=== PATIENT | female | born 1995 | race Two or more races ===

== ENCOUNTER 2021-06-20 03:29 | Outpatient (CLI) | payer MEDICAID, SELFPAY ==
[2021-06-20 14:10] LABS: TSH (W/Ref FT4) 1.49 uIU/mL (0.36-3.74)
[2021-06-20 22:29] LABS: Prolactin 8.6 ng/mL (See Table)
[2021-06-21 16:11] LABS: Chlamydia Result Negative (Negative); GC Result Negative (Negative)
[2021-06-22 09:46] LABS: DHEA Sulfate 199 ug/dL (134-407)
[2021-06-22 21:18] LABS: 17-Hydroxyprogesterone 69 ng/dL
[2021-06-23 13:35] LABS: Testosterone, Free 1.02 ng/dL (0.06-1.08); Testosterone, Total 51 ng/dL (8-60)
== END 2021-06-20 03:30 | disposition home or self-care (01) ==
LOC: LBO 03:29
PROVIDERS: Visit Provider Nurse Practitioner Family
DX: N92.6 Irregular menstruation, unspecified (principal); Z11.3 Encounter for screening for infections with a predominantly sexual mode of transmission
CPT/HCPCS: 36415; 82627; 84402; 84403; 87491; 87591; 83498; 84146; 84443

== ENCOUNTER 2021-06-20 13:23 | Outpatient (CLI) | payer MEDICAID, SELFPAY ==
--- NOTE | 2021-06-20 10:45 | DI.US_ITS ---
Exam(s) US PELVIS TRANSVAGINAL EXAM: US PELVIS TRANSVAGINAL CLINICAL HISTORY: Heavy and irregular periods,n92.6 TECHNIQUE: Ultrasound of the pelvis was performed both transabdominal and transvaginal. COMPARISON: No exams were available for comparison FINDINGS: UTERUS: Nongravid anteverted Measures 9.7 cm length x 3.4 cm AP x 5.6 cm wide. There are no uterine fibroids. Endometrial thickness measures 10.9 mm. There is no fluid in the endometrial canal. CERVIX: There are no obvious nabothian cysts. RIGHT OVARY: Measures 3.4 x 2.4 x 2.6 cm There is a 3.2 x 1.9 x 2.6 cm cyst in the right ovary LEFT OVARY: Measures 3 x 2.8 x 2.2 cm No significant cysts nor masses evident in the left ovary. CUL-DE-SAC: No free fluid evident. IMPRESSION: 1. Normal appearing uterus and age-appropriate endometrium. 2. A cyst in the right ovary measuring 32 x 19 x 26 millimeters. 3. No free fluid evident in the adnexal regions and cul-de-sac. DATA REPOSITORY:
== END 2021-06-20 13:43 ==
PROVIDERS: Visit Provider Nurse Practitioner Family
DX: N92.6 Irregular menstruation, unspecified (principal); N83.291 Other ovarian cyst, right side
CPT/HCPCS: 76830; 76856

== ENCOUNTER 2021-06-20 13:33 | Outpatient (REF) | payer MEDICAID, SELFPAY ==
--- NOTE | 2021-06-20 10:30 | PAPFT_PTH ---
PATIENT: Gina Pérez LOC: [facility] U#:[id number] AGE/SX: 25/F ROOM: RE06/20/[address]: LIZBETH Collier : 1995 BED: DIS: 06/20/2021 SPEC #: [id number] RECD: 06/20/21 18:33 STATUS: PETTY REBritt #: [id number] GARY: 06/20/21 10:[address]: Nelsy Montiel DEPT: [facility] Cytology RECD BY: Rebecca Link Tissues: 1 - CX/ENDOCX FOR PAP SMEARS Procedures: PAP THIN PREP/[facility] Screening Comments: [id number]
== END 2021-06-20 13:34 | disposition home or self-care (01) ==
LOC: LBN 13:33
PROVIDERS: Visit Provider Nurse Practitioner Family
DX: Z12.4 Encounter for screening for malignant neoplasm of cervix (principal)
CPT/HCPCS: 88142

== ENCOUNTER 2021-10-05 13:53 | Emergency (ER) | payer MEDICAID, SELFPAY ==
[2021-10-05 14:09] VITALS: BP 141/69; PULSE 65; RESP 16; TEMP 36.7; O2SAT 99
--- NOTE | 2021-10-05 15:52 | ED.GENADUL_ITS ---
Discharge Plan Disposition Patient Disposition: HOME Condition: Stable Discharge Details Clinical Impression: Lumbar contusion Primary Care Provider: None,None ED Provider: Rebecca Morales Home Meds and New Rx's Prescriptions: New cyclobenzaprine 10 mg tablet 10 mg PO TID PRNQty: 10 0RF Continued metformin 500 mg tablet 500 mg PO BID Qty: 180 3RF albuterol sulfate 90 mcg/actuation HFA aerosol inhaler 2 puff inhalation Q6H PRN (Reason: shortness of breath or wheezing) Qty: 8.5 0RF Rx Instructions: take 2 puffs every 6 hours as needed for cough, wheeze, or SOB Discharge Instructions Instructions: Contusion in Adults (ED) Additional Instructions: take tylenol and you may use flexeril as needed for discomfort with persistent pain, recommend xray or futher evaluation of your back please return earlier with strenght or sensation changes, change in bowel, bladder, or with any new or worsening symptoms Stand Alone Forms: Work Release Discharge Data Discharge Date/Time-TO BE ENTERED AT DEPARTURE: 10/05/21 16:20 Medical Decision Making Patient appears well, they are currently attempting to become and patient is unsure if she is currently She had a normal. 21 days ago and do start her period tomorrow I discussed performing test and x-ray however patient's pain is predominantly over her coccyx and management change with a positive coccyx fracture So patient feels comfortable with following up with PCP should she need it, she will take Tylenol and Flexeril as needed for discomfort She has no additional visible evidence of trauma and she has a nonfocal neurological exam Given low threshold to return with new or worsening complaints Medical Records Medical records reviewed: Yes I reviewed the patient's medical records. HPI General Date/Time Provider Initiated Documentation: 10/05/21 14:16 . HPI Narrative: This 26-year-old female presented with fall. She fell approximately 2 weeks ago and landed on her tailbone. She denies any additional injuries including no head injury. States that she is presenting mostly because the pain is been persistent and not dramatically improving. She states in the coccyx region questionable. She denies any changes in bowel or bladder. She denies any fever or chills. She denies any urinary incontinence or retention. She Denies known . Her last menstrual period was 21 days ago. Denies dysuria or frequency. Related Data Home Medications Medication Instructions Recorded Confirmed albuterol sulfate 90 mcg/actuation 2 puff INHALATION Q6H PRN #8.5 g 05/31/21 08/02/21 aerosol inhaler metformin 500 mg tablet 500 mg PO BID #180 tab 06/27/21 08/02/21 cyclobenzaprine 10 mg tablet 10 mg PO TID PRN #10 tab 10/05/21 Previous Rx's Medication Instructions Recorded albuterol sulfate 90 mcg/actuation 2 puff INHALATION Q6H PRN #8.5 g 05/31/21 aerosol inhaler metformin 500 mg tablet 500 mg PO BID #180 tab 06/27/21 cyclobenzaprine 10 mg tablet 10 mg PO TID PRN #10 tab 10/05/21 Allergies Allergy/AdvReac Type Severity Reaction Status Date / Time No Known Allergies Allergy Verified 05/31/21 12:17 General Stated Complaint: Orthopedic DEREK: 4 Review of Systems All systems reviewed & are unremarkable except as noted in HPI and below PFSH All Active Problems (Updated 10/05/21 @ 15:55 by ERWIN Ibrahim) Lumbar contusion (Acute) PCOS (polycystic ovarian syndrome) (Acute) Irregular menstruation, unspecified (Acute) Medical History Hypothyroid Family History Father Well adult Mother Well adult Social History Smoking/Tobacco Use Status: Never Smoking risk assessment performed?: Yes Alcohol Intake: never History History 1 Para Hx # Term Pregnancies 1 Multiple births Hx # Pregnancies Ectopic pregnancies AB induced Hx Number of Living Children 1 AB spontaneous Exam Const General: cooperative and no acute distress HENMT Head: normal to inspection Eyes Pupils: PERRL Resp Effort & Inspection: normal respiratory effort Auscultation: clear to auscultation bilaterally Cardio Rate: regular rate Rhythm: regular rhythm GI Other: No abdominal tenderness or visible trauma tenderness, no CVA tenderness No abdominal bruit or pulsatile mass Back/Spine/Pelvis Other: Tenderness to palpation over coccyx, no lumbar spine tenderness, no thoracic spine no visible evidence of trauma Skin General skin exam: no rashes or lesions noted Neuro General: patient alert and patient oriented x3 Cranial Nerves: CN's II-XI intact bilaterally Other: Strength and sensation distally Extrem Other: Distal pulses intact Course Vital Signs Vital signs: Vital Signs Temperature 36.7 C 10/05/21 14:09 Pulse 65 10/05/21 14:09 Respiratory Rate 16 10/05/21 14:09 Blood Pressure 141/69 H 10/05/21 14:09 Pulse Oximetry 99 10/05/21 14:09 Temperature 36.7 C 10/05/21 14:09 Temperature Source Skin 10/05/21 14:09 Pulse 65 10/05/21 14:09 Respiratory Rate 16 10/05/21 14:09 Respiratory Effort 10/05/21 14:13 Blood Pressure 141/69 H 10/05/21 14:09 Blood Pressure Position Sitting 10/05/21 14:09 Pulse Oximetry 99 10/05/21 14:09 Oxygen Delivery Method Room Air 10/05/21 14:09 Oxygen Flow Rate 0 10/05/21 14:09 Pain Level 7 10/05/21 15:02
== END 2021-10-05 16:20 | disposition home or self-care (01) ==
PROVIDERS: Emergency Provider Physician Assistant
DX: S30.0XXA Contusion of lower back and pelvis, initial encounter (principal); W00.0XXA Fall on same level due to ice and snow, initial encounter
CPT/HCPCS: 99283

== ENCOUNTER 2021-11-10 13:13 | Outpatient (CLI) | payer MEDICAID, SELFPAY ==
[2021-11-10 13:40] LABS: HCG Quant, Pregnancy < 1 mIU/mL (1-3)
== END 2021-11-10 13:14 | disposition home or self-care (01) ==
LOC: LBO 13:16
PROVIDERS: Obstetrics & Gynecology; Visit Provider Advanced Practice Midwife
DX: N91.0 Primary amenorrhea (principal)
CPT/HCPCS: 36415; 84702

== ENCOUNTER 2021-11-11 02:43 | Outpatient (CLI) | payer MEDICAID, SELFPAY | END 2021-11-11 02:44 | disposition home or self-care (01) | PROVIDERS: Visit Provider Obstetrics & Gynecology ==

== ENCOUNTER 2022-07-20 12:49 | Emergency (ER) | payer MEDICAID, SELFPAY ==
[2022-07-20 12:51] VITALS: BP 117/77; PULSE 92; RESP 16; TEMP 36.7; O2SAT 98
--- NOTE | 2022-07-20 14:34 | ED.GENADUL_ITS ---
Discharge Plan Disposition Patient Disposition: Home Condition: Stable Discharge Details Clinical Impression: Influenza Primary Care Provider: None,None ED Provider: Andrew Jackson Home Meds and New Rx's Prescriptions: Continued albuterol sulfate 90 mcg/actuation HFA aerosol inhaler 2 puff inhalation Q6H PRN (Reason: shortness of breath or wheezing) Qty: 8.5 0RF Rx Instructions: take 2 puffs every 6 hours as needed for cough, wheeze, or SOB Discharge Instructions Instructions: Influenza (ED) Additional Instructions: [id number] medications as directed for symptomatic control. Please watch for new or worsening symptoms and return to the ER for any concerns. Rest, plenty of fluids to avoid dehydration. Stand Alone Forms: Work Release Discharge Data Discharge Date/Time-TO BE ENTERED AT DEPARTURE: 07/20/22 14:42 Medical Decision Making 26-year-old female presents concerned that she has the flu, positive sick contact in her household diagnosed with flu earlier this week. Clinically she appears well, nontoxic. Afebrile, lungs are clear to auscultation. O2 sat 98% on room air. She is taking wcmy-ago-awxwviv medication with some relief. We discussed Tamiflu, she is otherwise healthy, symptoms are mild, would prefer to avoid any medications that she does not necessarily need. I believe this to be reasonable. She does not want to be tested for the flu, given her positive sick contact and symptoms, I believe this to be reasonable. We will presumptively assume this is the flu, will provide work note for tomorrow. Standard discharge and return precautions were provided. Patient understands, is agreeable to this plan, and has no additional questions or concerns upon discharge. This documentation was generated using [email or web address] system, please disregard any oddities of phrase or misspellings. Medical Records Medical records reviewed: Yes I reviewed the patient's medical records. HPI General Mode of arrival: ambulatory . Date/Time Provider Initiated Documentation: 07/20/22 14:10 . Limitations to Documentation: no limitations . Information obtained by: patient . HPI Narrative: 26-year-old female, denies significant past medical history, presents to the ER reporting URI-like symptoms for the past 24-48 hours. A family member who lives in the household tested positive for flu on Sunday. Patient has been DayQuil and NyQuil with some relief of her symptoms. Denies fever. Believes that she has the flu does not believe testing for the flu is necessary. Would like a work note for tomorrow. Related Data Home Medications Medication Instructions Recorded Confirmed albuterol sulfate 90 mcg/actuation 2 puff inhalation Q6H PRN 05/31/21 07/20/22 aerosol inhaler shortness of breath or wheezing #8.5 grams Previous Rx's Medication Instructions Recorded albuterol sulfate 90 mcg/actuation 2 puff inhalation Q6H PRN 05/31/21 aerosol inhaler shortness of breath or wheezing #8.5 grams Allergies Allergy/AdvReac Type Severity Reaction Status Date / Time No Known Allergies Allergy Verified 07/20/22 12:58 General Stated Complaint: RespSymp DEREK: 4 Review of Systems Constitutional Constitutional: Reports fatigue, Denies fever(s) and Reports headache(s) ENT Ears, Nose, Mouth, and Throat: Reports headache(s) and Reports nasal congestion Cardiovascular Cardiovascular: Denies chest pain and Denies dyspnea Respiratory Respiratory: Reports cough and Denies dyspnea Gastrointestinal Gastrointestinal: Denies abdominal pain, Denies diarrhea, Denies nausea and Denies vomiting Musculoskeletal Musculoskeletal: Reports myalgias Integumentary/Breasts Skin/Breast: Denies rash Neurologic Neurologic: Reports headache(s) Endocrine Endocrine: Reports fatigue PFSH All Active Problems Influenza (Acute) Anxiety (Chronic) Patient desires (Acute) Delayed menses (Acute) PCOS (polycystic ovarian syndrome) (Acute) Irregular menstruation, unspecified (Acute) Medical History Hypothyroid Miscarriage Family History Father Well adult Mother Well adult Social History Smoking/Tobacco Use Status: Never Smoking risk assessment performed?: Yes Alcohol Intake: never Drug use: Current Sobriety Substance use type: marijuana Do you feel safe at home: Yes Do you feel safe in your relationship?: Yes History History 3 Para Hx # Term Pregnancies 1 Multiple births Hx # Pregnancies Ectopic pregnancies AB induced Hx Number of Living Children 1 AB spontaneous 2 Past Pregnancies Del. Date GA/Weeks # Preg Succ Route Wgt Sex Labor Lgth Anesth esia Location Prov Complic 10/10/18 40 No Yes vaginal Female [place] Exam Const General: cooperative, healthy appearing, comfortable and no acute distress Orientation: alert and awake HENMT Head: normal to inspection, normocephalic and atraumatic Ears: external ears normal, TM's normal bilaterally and EAC's normal General nose exam: nasal discharge clear Mouth: moist mucous membranes Throat: posterior oropharynx normal Eyes Conjunctivae: conjunctivae normal Neck Neck: normal visual inspection, full ROM, no meningeal signs, trachea midline and supple Resp Effort & Inspection: normal respiratory effort, able to speak in complete sentences and cough Quality of cough: dry Auscultation: clear to auscultation bilaterally Cardio Rate: regular rate Rhythm: regular rhythm Skin General skin exam: no rashes or lesions noted Neuro General: patient alert, patient awake, moves all extremities and no focal motor deficits Sensory Exam: no sensory deficits noted Psych Appearance: grossly normal Mental Status: mental status grossly normal Course Vital Signs Vital signs: Vital Signs Temperature 36.7 C 07/20/22 12:51 Pulse 92 H 07/20/22 12:51 Respiratory Rate 16 07/20/22 12:51 Blood Pressure 117/77 07/20/22 12:51 Pulse Oximetry 98 07/20/22 12:51 Temperature 36.7 C 07/20/22 12:51 Temperature Source Skin 07/20/22 12:51 Pulse 92 H 07/20/22 12:51 Respiratory Rate 16 07/20/22 12:51 Respiratory Effort Non-Labored 07/20/22 14:17 Respiratory Depth Normal 07/20/22 14:17 Blood Pressure 117/77 07/20/22 12:51 Blood Pressure Position Standing 07/20/22 12:51 Pulse Oximetry 98 07/20/22 12:51 Oxygen Delivery Method Room Air 07/20/22 12:51 Oxygen Flow Rate 0 07/20/22 12:51 Pain Level 0 07/20/22 12:51
== END 2022-07-20 14:42 | disposition home or self-care (01) ==
PROVIDERS: Emergency Provider Physician Assistant
DX: J10.1 Influenza due to other identified influenza virus with other respiratory manifestations (principal)
CPT/HCPCS: 99282

== ENCOUNTER 2023-05-23 16:11 | Outpatient (REF) | payer OTHER, SELFPAY ==
[2023-05-23 16:58] LABS: *AMPHETAMINES SCREEN URINE Negative (Negative); *BARBITURATES SCREEN URINE Negative (Negative); *BENZODIAZEPINES SCREEN URINE Negative (Negative); Cannabinoids THC Negative (Negative); Cocaine Screen,Urine Negative (Negative); METHADONE URINE SCREEN Negative (Negative); OPIATES URINE SCREEN Negative (Negative)
[2023-05-23 17:00] LABS: Tricyclic Antidepressants Negative (Negative)
[2023-05-25 13:05] LABS: Chlamydia Result Negative (Negative); GC Result Negative (Negative)
[2023-05-30 10:49] LABS: Buprenorphine Negative ng/mL (Cutoff: 5.0); Norbuprenorphine Negative ng/mL (Cutoff: 2.5)
== END 2023-05-23 16:12 | disposition home or self-care (01) ==
LOC: LBN 16:11
PROVIDERS: Visit Provider Advanced Practice Midwife
DX: Z34.91 Encounter for supervision of normal pregnancy, unspecified, first trimester (principal)
CPT/HCPCS: 80307; 80348; 87491; 87591; 87086; 87480; 87510; 87660

== ENCOUNTER 2023-06-29 00:58 | Outpatient (CLI) | payer OTHER, SELFPAY ==
[2023-06-29 12:35] LABS: Abs Immature Grans 0.02 10^3/uL (0.0-0.06); Absolute Basophil Count 0.03 10^3/uL (0.0-0.2); Absolute Eosinophil Count 0.14 10^3/uL (0.0-0.7); Absolute Lymphocyte Count 2.18 10^3/uL (1.2-3.4); Absolute Monocyte Count 0.38 10^3/uL (0.1-0.8); Absolute Neutrophil Count 5.78 10^3/uL (1.2-6.7); Basophils % 0.4; Eosinophils % 1.6; HGB 11.9 g/dL (11.2-15.7); Immature Grans % 0.2; Lymphocytes % 25.6; MCH 27.9 pg (27.0-33.0); MCHC 33.1 % (32.0-36.0); MCV 84 fL (80-95); Monocytes % 4.5; Neutrophils % 67.7; Platelet Count 278 10^3/uL (130-400); RBC 4.27 10^6/uL (3.93-5.22); RDW 13.7 % (11.7-14.6); RDW-SD 42.4 fL; WBC 8.53 10^3/uL (4.4-10.8)
[2023-06-29 12:50] LABS: Hemoglobin A1C 5.3 % (<5.7)
[2023-06-29 12:59] LABS: TSH (W/Ref FT4) 1.03 uIU/mL (0.36-3.74)
[2023-07-02 10:34] LABS: Hepatitis B Surface Ag Negative (Negative)
[2023-07-02 11:00] LABS: Hepatitis C Ab w Rflx HCV PCR Negative (Negative)
[2023-07-02 11:06] LABS: HIV-1/2 Ag & Ab Screen Negative (Negative)
[2023-07-02 11:34] LABS: Varicella IgG Antibody Negative (See Note)
[2023-07-02 11:36] LABS: Rubella IgG Ab (UVM) Negative (See Note)
[2023-07-03 22:02] LABS: Syphilis IgG w/Reflex Nonreactive (Nonreactive)
== END 2023-06-29 00:59 | disposition home or self-care (01) ==
PROVIDERS: Visit Provider Advanced Practice Midwife
DX: Z34.91 Encounter for supervision of normal pregnancy, unspecified, first trimester; E28.2 Polycystic ovarian syndrome
CPT/HCPCS: 36415; 86787; 86803; 86850; 86900; 86901; 87340; 87389; 83036; 84443; 85025; 86762; 86780

== ENCOUNTER → 2023-07-11 02:09 | Outpatient (CLI) | payer OTHER, SELFPAY ==
--- NOTE | 2023-07-11 08:00 | DI.US_ITS ---
Exam(s) US OB 2-3 TRIMESTER W MOD EXAM: US OB 2-3 TRIMESTER W MOD CLINICAL HISTORY: ,z34.90. TECHNIQUE: Transabdominal obstetrical ultrasound performed. COMPARISON: US POCUS EXAM from 04/25/2023 FINDINGS: Number of fetuses: One. position: Breech, face up Placental grade: 1 Placental location: Anterior no evidence of previa. BIOMETRIC DATA: BPD: 46mm = 20+ 0 weeks HC: 168mm = 19+ 3 weeks AC: 148mm = 20+ 0 weeks FL: 33mm = 20+ 1 weeks Cisterna Magna: Not visualized mm Cerebellum: Not visualized cm EFW: 327 grms 64% Composite Age: 19+ 6 weeks EDC by US: 29 November 2023 Heart Rate: !ErrorBPM Amniotic fluid : Amount of fluid is within normal limits. ANATOMICAL SURVEY: Four-chambered heart: Unremarkable. LVOT: Unremarkable. RVOT: Unremarkable. Left-sided stomach: Unremarkable. urinary bladder: Unremarkable. Bilateral kidneys: Unremarkable. Three-vessel cord: Unremarkable. Cord insertion: Unremarkable. Posterior fossa:Not visualized ventricles: Unremarkable. nose: Unremarkable. lips: Unremarkable. palate: Unremarkable. spine: Unremarkable. Two arms and two legs: Unremarkable. IMPRESSION: 1. Single live intrauterine gestation with composite age 19+ 6 weeks.. 2. Normal anatomic survey. Posterior fossa not visualized. Patient is scheduled to return 20 July 2023 for additional imaging. DATA REPOSITORY:
== END ==
PROVIDERS: Visit Provider Advanced Practice Midwife
DX: Z34.93 Encounter for supervision of normal pregnancy, unspecified, third trimester (principal)
CPT/HCPCS: 76805

== ENCOUNTER 2023-08-25 13:09 | Outpatient (CLI) | payer OTHER, SELFPAY ==
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
[2023-08-25 13:48] VITALS: BP 109/76; PULSE 82
--- NOTE | 2023-08-25 13:55 | W.OBNST ---
Date of service: 08/25/23 Time of Service: 13:55 Note Ultrasound Done: Presentation (vtx) Coding for Presentation w/NST: Completed Exam and Other (placenta with no abnormalities. Good movement. ). NST Note Note: Did POCUS due to pt having an episode of bleeding Around 26wks. See the CNM note for complete details. No concerns on sono. Pt discussed and plan made in conjuction with CNM. NST Reviewed and Verified by: Minerva Ornelas
--- NOTE | 2023-08-25 14:17 | W.OBNST ---
Date of service: 08/25/23 Time of Service: 13:10 NST Evaluation Reason for NST Reasons for Nonstress Test: OTHER, SEE COMMENT (vaginal bleeding 26w1d) Test and Monitor Explained Test/Monitor Explained: Test Explained, Monitor Explained and Patient Verbalized Understanding Vital Signs Blood Pressure: 109/76 Pulse: 82 NST Information Date on Monitor: 08/25/23 Time on Monitor: 13:04 Date off Monitor: 08/25/23 Time off Monitor: 13:48 Total Time on Monitor: 44 Contraction Frequency: none Note Ultrasound Done: N/A (see separate note by Dr. Ornelas). NST Note Note: assessment done due to complaint of bright red vaginal bleeding without pain X 1 today. Enough to soak toilet paper but not clothing. Denies contractions or pain. Baby has been active. FHR 150's WNL for 26 week gestation. No uterine activity noted. SSE done, cervix long, thick and closed. [place] discharge in vagina in small amount, none from OS noted. Couple had intercourse less than 48 hours ago. Vaginal pathogen and GC CT obtained as well as clean catch urine. Dr. Ornelas consulted and feels discharge to home to rest is appropriate at this time and Gina will call back with any further concerns. Pelvic rest at this time recommended for the weekend.POCUS done by Dr. Ornelas confirms VTX, adequate amniotic fluid visually. SADE NST Reviewed and Verified by: Tova Guadalupe
[2023-08-25 14:22] VITALS: BP 109/76; PULSE 82
== END 2023-08-25 14:05 | disposition home or self-care (01) ==
LOC: BCD 13:09 → OBS 13:10
PROVIDERS: Visit Provider Advanced Practice Midwife
DX: O26.852 Spotting complicating pregnancy, second trimester (principal); Z3A.26 26 weeks gestation of pregnancy
CPT/HCPCS: 87491; 87591; 59025; 87086; 87480; 87510; 87660

== ENCOUNTER 2023-09-07 02:45 | Outpatient (CLI) | payer OTHER, SELFPAY ==
[2023-09-07 11:25] LABS: HCT 34.9 % (36.0-46.0); HGB 11.3 g/dL (11.2-15.7); MCHC 32.4 % (32.0-36.0); MCV 87 fL (80-95); Platelet Count 297 10^3/uL (130-400); RBC 4.03 10^6/uL (3.93-5.22); RDW 13.6 % (11.7-14.6); RDW-SD 42.9 fL; WBC 9.74 10^3/uL (4.4-10.8)
[2023-09-07 11:50] LABS: Glucose,1 Hr (Glucola) 103 mg/dL (80-140)
== END 2023-09-07 02:46 | disposition home or self-care (01) ==
LOC: LBO 02:45
PROVIDERS: Visit Provider Advanced Practice Midwife
DX: Z34.93 Encounter for supervision of normal pregnancy, unspecified, third trimester (principal)
CPT/HCPCS: 36415; 82950; 85027

== ENCOUNTER 2023-10-15 00:43 | Outpatient (CLI) | payer OTHER, SELFPAY ==
[2023-10-15 01:31] VITALS: BP 110/65; PULSE 60; TEMP 36.7
[2023-10-15 01:35] VITALS: BP 142/75; PULSE 56
[2023-10-15] MEDS: Lactated Ringers 1,000 ML 1000 ML IV (01:45)
--- NOTE | 2023-10-15 02:06 | W.PM.PROGNOT ---
Date of Service Date of service: 10/15/23 Time of Service: 02:06 Assessment and Plan Assessment and plan (1) Uterine contractions at greater than 20 weeks of gestation: Status: Acute Assessment and plan: A: 28 yo @ 33+3 wks; reactive NST, no labor Discomforts of , dehydration Maternal anxiety, obesity P: Rehydrated with 1 liter LR IV PO intake challenge, Tylenol for back pain POCUS confirms cephalic presentation Discharged home feeling better, f/up as scheduled with OB Providers Subjective Subjective Interval history since last seen: Woke up with a hard tummy that hurt in the lower abdomen and back pain at 2300, pt crying on the phone when she called, vomited x1. Denies ROM or bleeding or recent coitus. Exam Const General: cooperative and anxious Nutritional Appearance: obese Orientation: alert, awake and oriented x3 Chest Chest: normal inspection of the chest Resp Effort & Inspection: normal respiratory effort and able to speak in complete sentences Cardio Rate: regular rate Rhythm: regular rhythm External Female Exam: normal external appearance Other: cvx closed, thick and firm, posterior, presenting part -3 Skin General skin exam: no rashes or lesions noted and elasticity normal Neuro Other: Nml patellar reflexes Extrem General: normal to inspection, full ROM and normal gait Psych Mood: anxious mood (on arrival, relaxed once she knew the baby was ok and she was not in PTL) Attitude: cooperative Thought Process: normal Thought Content: normal Objective BP 110/65, Pulse 60, temp 98.1 Reactive NST, active fetus Time Spent with Patient Time Spent with Patient: 25-34 minutes Time was spent: preparing to see the patient(eg.review tests), obtaining and/or reviewing separately otained hiistory, ordering medications,tests, procedures, indepentently interpreting results and counseling the patient
[2023-10-15] MEDS: Acetaminophen 500 MG TAB 1000 MG PO (02:12)
[2023-10-15 02:15] VITALS: BP 110/65; PULSE 60; TEMP 36.7
--- NOTE | 2023-10-15 02:21 | W.OBNST ---
Date of service: 10/15/23 Time of Service: 02:21 NST Evaluation Reason for NST Reasons for Nonstress Test: OTHER, SEE COMMENT Reason for NST Other: Rule out labor Gestational Age Gestational Age in Weeks and Days: 33 Weeks and 3Days Test and Monitor Explained Test/Monitor Explained: Test Explained, Monitor Explained and Patient Verbalized Understanding Vital Signs Blood Pressure: 110/65 Pulse: 60 Temperature: 98.1 F Urine Results Urine Protein: Positive Urine Ketones: Negative Urine Glucose: Negative Urine Blood: Negative NST Information Date on Monitor: 10/15/23 Time on Monitor: 01:30 Date off Monitor: 10/15/23 Time off Monitor: 01:50 Total Time on Monitor: 20 NST Interventions: PO Hydration and IV Fluids NST Evaluation Patient States Movement: Present FHR Baseline: 145 Variability: Moderate 6-25 bpm Accelerations: 15x15 Decelerations: None NST Results: Reactive Note Ultrasound Done: Presentation Presentation Results: cephalic presentation Coding for Presentation w/NST: Completed Exam. NST Note Note: No labor, cvx closed/thick, firm, posterior Uterine irritability resolved with 1 liter LR IV bolus Given tylenol for back pain Discharged to home, f/up as scheduled pt requested work note NST Reviewed and Verified by: Audrey Earl
[2023-10-15 02:23] VITALS: BP 110/65; PULSE 60; TEMP 36.7
== END 2023-10-15 02:57 | disposition home or self-care (01) ==
LOC: BCD 00:47 → OBS 01:25
PROVIDERS: PCP Advanced Practice Midwife; Visit Provider Advanced Practice Midwife
DX: O47.03 False labor before 37 completed weeks of gestation, third trimester (principal); Z3A.33 33 weeks gestation of pregnancy
CPT/HCPCS: 59025; 81003

== ENCOUNTER → 2023-10-22 04:47 | Outpatient (CLI) | payer OTHER, SELFPAY ==
--- NOTE | 2023-10-22 08:30 | DI.US_ITS ---
Exam(s) US OB CAM WEIGHT EXAM: US OB CAM WEIGHT CLINICAL HISTORY: interval growth, position,high bmi,z34.90. TECHNIQUE: Transabdominal obstetrical ultrasound performed. COMPARISON: US US OB 2-3 TRIMESTER W MOD from 07/11/2023 US US OB F/U FACIAL/LVOT/RVOT from 07/20/2023 US POCUS EXAM from 08/25/2023 US POCUS EXAM from 10/15/2023 FINDINGS:: Number of fetuses: One. position: Vertex. Placental location: Anterior. Grade 1. no evidence of previa. BIOMETRIC DATA: BPD: 87mm = 35+2 weeks HC: 316mm = 35+3 weeks AC: 320mm = 35+ 6 weeks FL: 69 mm = 35+3 weeks EFW: 2729 Gms = 80% Composite Age: 35+4 weeks JOHN: 22 November 2023 Heart Rate: 135BPM Amniotic fluid index: 14 cm. Amount of fluid is visually within normal limits. IMPRESSION: size and weight are within the expected range. DATA REPOSITORY:
== END ==
PROVIDERS: PCP Advanced Practice Midwife; Visit Provider Advanced Practice Midwife
DX: Z34.93 Encounter for supervision of normal pregnancy, unspecified, third trimester (principal); Z3A.35 35 weeks gestation of pregnancy
CPT/HCPCS: 76816

== ENCOUNTER 2023-11-05 16:23 | Outpatient (REF) | payer OTHER, SELFPAY | END 2023-11-05 16:24 | disposition home or self-care (01) | LOC: LBN 16:23 | PROVIDERS: PCP Advanced Practice Midwife; Visit Provider Advanced Practice Midwife | DX: Z34.93 Encounter for supervision of normal pregnancy, unspecified, third trimester (principal); Z36.85 Encounter for antenatal screening for Streptococcus B; Z3A.36 36 weeks gestation of pregnancy | CPT/HCPCS: 87081 ==

== ENCOUNTER 2023-11-26 01:19 | Inpatient (IN) | payer OTHER, SELFPAY ==
[2023-11-26] VITALS (14 sets, daily range): BP systolic 116–142; BP diastolic 69–87; PULSE 65–117; RESP 18; TEMP 36.6–37.4; O2SAT 98; BMI 45.1
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
[2023-11-26] MEDS: Lactated Ringers 1,000 ML 125 ML IV (01:45)
[2023-11-26] MEDS: Penicillin G POT. 5,000,000 UNITS in Normal Saline 100 ML 200 UNITS IVPB (01:46)
[2023-11-26 01:58] LABS: HCT 40.3 % (36.0-46.0); HGB 13.2 g/dL (11.2-15.7); MCH 27.3 pg (27.0-33.0); MCHC 32.8 % (32.0-36.0); MCV 83 fL (80-95); MPV 11.4 fL (8.0-11.0); Platelet Count 215 10^3/uL (130-400); RBC 4.83 10^6/uL (3.93-5.22); RDW 13.8 % (11.7-14.6); RDW-SD 42.2 fL; WBC 9.48 10^3/uL (4.4-10.8)
[2023-11-26 02:22] LABS: Hemoglobin A1C 5.8 % (<5.7)
[2023-11-26] MEDS: Acetaminophen 500 MG TAB 1000 MG PO (03:23)
--- NOTE | 2023-11-26 05:16 | PGE_ITS ---
Date of service: 11/26/23 Time of Service: 05:16 Pelvic Exam Dilation: 8 Effacement (%): 100 station: -2 Position: ROP Contractions Monitor Mode: Palpation Contraction Frequency(min): q3-5 Intensity: Moderate/Strong Fetus A Monitor: Doppler Heart Rate Baseline: 140 FHR Rhythm: Regular Characteristics: Normal Decelerations: None Amniotic Membrane Status: Intact Assessment and Plan Assessment and plan (1) Normal labor: Status: Acute Assessment and plan: A: Coping well with labor while in tub ROP head position, approaching transition First dose of PCN infused P: Pt agreeable to leaving tub briefly after 2nd dose PCN Will consider AROM, some position changes Anticipate (2) Group B Streptococcus carrier, +RV culture, currently : Status: Acute Objective Abnormal lab results 11/26/23 Range/Units 01:43 MPV 11.4 H (8.0-11.0) fL Hemoglobin A1c 5.8 H (<5.7) % Temp Pulse BP 99.3 F 82 132/69 11/26/23 05:05 11/26/23 05:05 11/26/23 05:05 Laboratory Results WBC 9.48 10^3/uL (4.4-10.8) 11/26/23 01:43 RBC 4.83 10^6/uL (3.93-5.22) 11/26/23 01:43 Hgb 13.2 g/dL (11.2-15.7) 11/26/23 01:43 Hct 40.3 % (36.0-46.0) 11/26/23 01:43 MCV 83 fL (80-95) 11/26/23 01:43 MCH 27.3 pg (27.0-33.0) 11/26/23 01:43 MCHC 32.8 % (32.0-36.0) 11/26/23 01:43 RDW 13.8 % (11.7-14.6) 11/26/23 01:43 Plt Count 215 10^3/uL (130-400) 11/26/23 01:43 MPV 11.4 fL (8.0-11.0) H 11/26/23 01:43 Hemoglobin A1c 5.8 % (<5.7) H 11/26/23 01:43 Patient ABO/Rh B Positive 11/26/23 01:43 Antibody Screen NEGATIVE 11/26/23 01:43 Vital Signs Reviewed: Yes Objective Narrative Objective Narrative: Pt relaxing well in the tub She requested SVE at 0300, found to be 8cm with descent to -2, softly bulging forebag Hgb A1C @ 5.8; hgb 13.2 Intermittent FHT per doppler reassuring Subjective Interval history since last seen: Enjoying being in the tub, was able to sleep for an hour, now reports mild r ectal pressure during some contractions and states she has lower back pain which has been happening since yesterday,, has a headache for which she requested tylenol, tolerating PO fluid intake.
[2023-11-26] MEDS: Penicillin G POT. 3,000,000 UNITS in Normal Saline 50 ML 100 UNITS IVPB (05:38)
--- NOTE | 2023-11-26 06:33 | PGE_ITS ---
Date of service: 11/26/23 Time of Service: 06:33 Informed Consent Informed Consent: Risk,Benefits,Alternatives Discussed and Other (AROM) Pelvic Exam Dilation: 8 Effacement (%): 100 station: -2 Position: LOP Cervix Position: mid Consistency: soft Contractions Monitor Mode: External Contraction Frequency(min): q2-4 Contraction Duration(sec): 60 Intensity: Moderate Fetus A Monitor: External (US) Heart Rate Baseline: 150 Variability: Moderate (6-25 BPM) Categories: Category I Accelerations: Present Decelerations: None Amniotic Membrane Status: Ruptured Rupture Method: Artifical Amniotic Fluid: M econium Date of Membrane Rupture: 11/26/23 Time of Membrane Rupture: 06:27 Assessment and Plan Assessment and plan (1) Normal labor: Status: Acute Assessment and plan: A: Slowed progress in multipara; @ 8 cm AROM accomplished for large amt meconium tinged fluid Category 1 tracing; normotensive & afebrile P: Positioning to facilitate rotation and descent May return to tub when begins progressing again Anticipate (2) Group B Streptococcus carrier, +RV culture, currently : Status: Acute Assessment and plan: Has received 2 doses of PCN prophylaxis Subjective Interval history since last seen: Contractions have decreased in frequency and strength, able to void 400 ml, resting LLP in bed, agrees to AROM.
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
[2023-11-26] MEDS: Oxytocin/Normal Saline 30 UNIT/500 ML BAG 334 UNITS IV (09:25)
--- NOTE | 2023-11-26 09:35 | OBVDS_ITS ---
Date of service: 11/26/23 Time of Service: 09:36 OB Labor/ Delivery Information Baby A Delivery Delivery Method: Spontaneaous Presentation: Cephalic Vertex Position: Right Occipital Anterior Cord Description-Baby A: 3 Vessels and Clamped/Cut (after 3 minutes of delayed cord clamping) Amniotic Fluid: Meconium (thin) Estimated Blood Loss: 350 Delivery Outcome: Liveborn Transferred: Remains with Mother Note: Gina presented in early active labor early hours of 11/26/23 and progressed to 8.5/90/-1 at approximately 0830. She requested epidural despite encouragement that her baby would deliver soon. VAMP PRESSER attended but then patient had urge to push. FHR WNL throughout labor. VE at 0905 10/100/+3. Second stage huddle held and after 2 contractions, baby girl Alfreda delivered SHANIQUA over intact perineum at 0907. Baby was placed skin to skin. After 3 minutes cord ceased pulsations and was double clamped and then cut by FOB. Placenta delivered via reyes mechanism with gentle cord traction and maternal pushing effort at 0923. Fundus firms to U with massage and bi-manual exam demonstrates firm lower uterine segment and no clots. EBL 350cc. Perineum is intact. Gina plans to breast feed her daughter. Plan 36-48 hour stay due to meconium fluid and GBS + status. Did receive 2 doses prior to delivery of PCN. Expect normal PP course. Providers Nurse Biophysics Professor: Tova Guadalupe Nurse: Marilou Hooks Labor/Delivery Information Number of Babies in Womb: 1 Steroids Given: None Reason Steroids Not Administered: N/A Group Beta Strep: Positive Antibiotics Administered: Yes Number of Doses of Antibiotics: 2 Rubella Status: Nonimmune Blood Type: B+ Varicella Immunity: Nonimmune Shoulder Dystocia: No Stages of Labor Onset of Labor Date: 11/25/23 Onset of Labor Time: 08:00 Complete Dilatation Date: 11/26/23 Complete Dilatation Time: 09:05 Labor - Stage 1 Duration: 25 hours and 5 minutes ROM Baby A: 11/26/23 ROM Baby A: 06:27 ROM Total Time- Baby A: [id number] Delivery Date-Baby A: 11/26/23 Infant Delivery Time-Baby A: 09:07 Labor Stage 2 Duration: 2 minutes Placenta Delivery Date-Baby A: 04/22/24 Placenta Delivery Time-Baby A: 09:23 Labor-Stage 3 Duration: 16 minutes Total Length of Labor-Baby A: 25 hours and 7 minutes Placenta Status: Delivered Baby A Infant Gender: Female Gestational Status: Term (39-41.6 wks) Gestational Age in Weeks/Days: 39 Weeks and 3 Days Score-1 Minute Interval(Baby A) Heart Rate-1 minute: 100 BPM or Greater Respiratory Effort- 1 minute: Spontaneous/Strong Cry Muscle Tone-1 minute: Active Movement Reflex Response-1 minute: Prompt Response Color-1 minute: Bluish Hands or Feet Total Score-1 minute: 9 Score-5 Minute Interval(Baby A) Heart Rate- 5 minute: 100 BPM or Greater Respiratory Effort-5 minute: Spontaneous/Strong Cry Muscle Tone-5 minute: Active Movement Reflex Response-5 minute: Prompt Response Color-5 minute: Bluish Hands or Feet Total Score- 5 minute: 9
[2023-11-26] MEDS: Acetaminophen 325 MG TAB 650 MG PO ×2 (10:42→22:04)
[2023-11-26] MEDS: Ibuprofen 600 MG TAB PO (10:43)
[2023-11-26] MEDS: Hamamelis Leaf/Glycerin 100 EACH BOX PR (10:44)
[2023-11-26] MEDS: Dibucaine 1% 28 GM TUBE TP (10:44)
[2023-11-27] VITALS: BP 106/63; PULSE 78; RESP 18; TEMP 36.6
--- NOTE | 2023-11-27 00:03 | NUR.NOTE ---
Nursing Note,Pt reports baby is nursing frequently for long periods of time, WNL. Pt reports some nipple soreness when asked. Nipple cream given with verbal instructions and pt verbalizes understanding. Reviewed importance of a good latch especially towards end of feedings if baby is relaxing suck.
[2023-11-27 08:45] VITALS: BP 124/77; PULSE 74; RESP 17; TEMP 36.7
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
== END 2023-11-27 12:45 | disposition home or self-care (01) | DRG 807 ==
LOC: BCD 01:29 → OBS 01:29
PROVIDERS: Admitting Provider Advanced Practice Midwife; PCP Advanced Practice Midwife; Visit Provider Advanced Practice Midwife
DX: O99.824 Streptococcus B carrier state complicating childbirth (principal); Z37.0 Single live birth; Z3A.39 39 weeks gestation of pregnancy; O99.284 Endocrine, nutritional and metabolic diseases complicating childbirth; E28.2 Polycystic ovarian syndrome; O77.0 Labor and delivery complicated by meconium in amniotic fluid; O99.214 Obesity complicating childbirth; E66.01 Morbid (severe) obesity due to excess calories; O99.344 Other mental disorders complicating childbirth; F41.9 Anxiety disorder, unspecified; O99.62 Diseases of the digestive system complicating childbirth; R12 Heartburn; O75.89 Other specified complications of labor and delivery; M54.31 Sciatica, right side
CPT/HCPCS: 85027; 86850; 86900; 86901; 59025; 83036; J2540

== ENCOUNTER 2024-01-08 15:59 | Outpatient (REF) | payer OTHER, SELFPAY ==
--- NOTE | 2024-01-08 16:00 | PAPFT_PTH ---
PATIENT: Gina Pérez LOC: TRAM U#:[id number] AGE/SX: 28/F ROOM: RE01/08/[address]: Tova Guadalupe CNM : 1995 BED: DIS: 01/08/2024 SPEC #: [id number] RECD: 01/08/24 17:52 STATUS: PETTY REQ #: [id number] GARY: 01/08/24 16:[address]: Tova Guadalupe [facility] Cytology RECD BY: Rebecca Link ENTERED: 01/08/24 17:53 SP TYPE: PAPFT OTHR DR: Audrey Earl CNM Tissues: 1 - CX/ENDOCX FOR PAP SMEARS Procedures: PAP THIN PREP/UVM Screening Comments: [id number]
== END 2024-01-08 16:00 | disposition home or self-care (01) ==
LOC: LBN 15:59
PROVIDERS: PCP Advanced Practice Midwife; Visit Provider Advanced Practice Midwife
DX: Z12.4 Encounter for screening for malignant neoplasm of cervix (principal)
CPT/HCPCS: 88142

== ENCOUNTER 2024-05-11 21:16 | Emergency (ER) | payer MEDICAID, SELFPAY ==
[2024-05-11 21:17] VITALS: BP 147/89; PULSE 90; RESP 16; TEMP 36.6; O2SAT 98
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
[2024-05-11] MEDS: Lidocaine/Prilocaine Cream 5 GM TUBE TP (22:11)
[2024-05-11] MEDS: Nystatin POWDER 15 GM JAR TP (22:11)
[2024-05-11] MEDS: Lidocaine/Prilocaine Cream 5 GM TUBE (22:36)
[2024-05-11 22:37] VITALS: RESP 20; O2SAT 98
== END 2024-05-11 22:42 | disposition home or self-care (01) ==
LOC: ER 22:43
PROVIDERS: Emergency Provider Nurse Practitioner Family; PCP Advanced Practice Midwife
DX: R21 Rash and other nonspecific skin eruption (principal); L98.8 Other specified disorders of the skin and subcutaneous tissue
CPT/HCPCS: 99283

== ENCOUNTER 2024-06-10 13:56 | Outpatient (CLI) | payer MEDICAID, SELFPAY ==
[2024-06-10] MEDS: Omnipaque 350 MG/ML 100 ML BTL IJ (14:54)
[2024-06-10] MEDS: Normal Saline - Diluent 50 ML VIAL IJ (14:55)
--- NOTE | 2024-06-10 15:10 | DI.CT_ITS ---
Exam(s) CT HEAD WO/W EXAM: CT HEAD WO/W CLINICAL HISTORY: swelling left scalp, painful ? etiology R22.0 MASS. TECHNIQUE: Imaging Protocol: Axial computed tomography images with coronal and sagittal reformatted images were created and reviewed. CONTRAST MATERIAL: Intravenous: Omnipaque 350 contrast volume:100 mL COMPARISON: No exams were available for comparison FINDINGS: Ventricles and Extra axial spaces: Normal in size and morphology for the patient's age. Hemorrhage: None. Cerebral parenchyma: Normal. Enhancement: No suspicious enhancement. [place]: Unremarkable. Midline shift: None. Brainstem/Cerebellum: Normal. Calvarium: Normal. Visualized Paranasal sinuses/Mastoids: Clear. Soft tissues: There is a 0.7 cm round nodule in the soft tissues posterior to the left ear (series 4, image 47). There is also mild infiltration of the soft tissues. No focal fluid collection is seen to suggest an abscess. This may represent an lymph node. IMPRESSION: 1. No acute intracranial process. 2. Infiltration of the soft tissues posterior to the left ear with a 0.7 cm round nodule in the subcu taneous tissues. This may correspond to the palpable abnormality and may represent a reactive lymph n ode. The underlying bone is unremarkable. Please correlate with patient's physical exam. RADIATION DOSE DELIVERED: 1,786.62mGy.cm Total DLP 1,786.62mGy.cm Total DLP DATA REPOSITORY: All CT scans at this facility are submitted to the National Radiology Data Registry (NRDR) Dose Index Registry (DIR) with the [employer] ([employer]). RADIATION OPTIMIZATION: All CT scans at this facility use at least one of these dose optimization te chniques: automated exposure control; mA and/or kV adjustment per patient size (includes targeted exa ms where dose is matched to clinical indication); or iterative reconstruction.
== END 2024-06-10 14:16 ==
LOC: DI 13:57
PROVIDERS: PCP Advanced Practice Midwife; Visit Provider Physician Assistant
DX: R22.0 Localized swelling, mass and lump, head (principal)
CPT/HCPCS: 70470; J3490

== ENCOUNTER 2024-06-10 15:47 | Outpatient (CLI) | payer MEDICAID, SELFPAY ==
[2024-06-10 14:36] LABS: Abs Immature Grans 0.01 10^3/uL (0.0-0.06); Absolute Basophil Count 0.04 10^3/uL (0.0-0.2); Absolute Eosinophil Count 0.16 10^3/uL (0.0-0.7); Absolute Lymphocyte Count 2.29 10^3/uL (1.2-3.4); Absolute Monocyte Count 0.54 10^3/uL (0.1-0.8); Absolute Neutrophil Count 5.24 10^3/uL (1.2-6.7); Basophils % 0.5 %; Eosinophils % 1.9 %; HGB 12.9 g/dL (11.2-15.7); Immature Grans % 0.1 %; Lymphocytes % 27.7 %; MCH 26.7 pg (27.0-33.0); MCHC 31.5 % (32.0-36.0); MCV 85 fL (80-95); MPV 9.6 fL (8.0-11.0); Monocytes % 6.5 %; Neutrophils % 63.3 %; Platelet Count 301 10^3/uL (130-400); RBC 4.83 10^6/uL (3.93-5.22); RDW 15.4 % (11.7-14.6); RDW-SD 47.6 fL; WBC 8.28 10^3/uL (4.4-10.8)
[2024-06-10 15:01] LABS: ALT 65 U/L (14-59); AST 20 U/L (15-37); Albumin 3.1 g/dL (3.4-5.0); Alkaline Phosphatase 120 U/L (46-116); Anion Gap 7.2 mmol/L (3-11); BUN 11 mg/dL (7-18); Bilirubin, Total 0.33 mg/dL (0.2-1.0); CO2 29.8 mmol/L (21.0-32.0); CREATININE 0.7 mg/dL (0.55-1.02); Calcium 9.2 mg/dL (8.5-10.1); Chloride 109 mmol/L (98-107); Estimated GFR 121.49 (mL/min/1.73m2); Glucose 110 mg/dL (74-106); Potassium 3.7 mmol/L (3.5-5.1); Sodium 146 mmol/L (136-145); TSH (W/Ref FT4) 1.21 uIU/mL (0.36-3.74); Total Protein 7.3 g/dL (6.4-8.2)
== END 2024-06-10 15:48 | disposition home or self-care (01) ==
LOC: LBO 15:48
PROVIDERS: PCP Advanced Practice Midwife; Visit Provider Physician Assistant
DX: R22.0 Localized swelling, mass and lump, head (principal); R20.2 Paresthesia of skin
CPT/HCPCS: 36415; 80053; 84443; 85025

== ENCOUNTER 2024-12-30 10:47 | Outpatient (CLI) | payer MEDICAID, SELFPAY ==
[2024-12-30 16:11] LABS: Abs Immature Grans 0.01 10^3/uL (0.0-0.06); Absolute Basophil Count 0.04 10^3/uL (0.0-0.2); Absolute Eosinophil Count 0.11 10^3/uL (0.0-0.7); Absolute Lymphocyte Count 2.98 10^3/uL (1.2-3.4); Absolute Monocyte Count 0.54 10^3/uL (0.1-0.8); Absolute Neutrophil Count 5.64 10^3/uL (1.2-6.7); Basophils % 0.4 %; Eosinophils % 1.2 %; HCT 43.3 % (36.0-46.0); HGB 13.8 g/dL (11.2-15.7); Immature Grans % 0.1 %; MCH 27.7 pg (27.0-33.0); MCHC 31.9 % (32.0-36.0); MCV 87 fL (80-95); Monocytes % 5.8 %; Neutrophils % 60.5 %; Platelet Count 313 10^3/uL (130-400); RBC 4.99 10^6/uL (3.93-5.22); RDW 14.1 % (11.7-14.6); RDW-SD 44.7 fL; WBC 9.32 10^3/uL (4.4-10.8)
[2024-12-31 18:43] LABS: Prolactin 9.5 ng/mL (See Note)
[2025-01-02 10:22] LABS: DHEA Sulfate 258 ug/dL (96-512)
[2025-01-05 00:02] LABS: 17-Hydroxyprogesterone <40 ng/dL
[2025-01-15 15:31] LABS: Testosterone, Free 0.65 ng/dL (<0.13-1.06); Testosterone, Total 28 ng/dL (8-60)
== END 2024-12-30 10:48 | disposition home or self-care (01) ==
PROVIDERS: Nurse Practitioner Women's Health; PCP Nurse Practitioner Family; Visit Provider Advanced Practice Midwife
DX: N92.0 Excessive and frequent menstruation with regular cycle (principal)
CPT/HCPCS: 36415; 82627; 83498; 84402; 84403; 84146; 84443; 85025

== ENCOUNTER 2025-01-07 01:43 | Outpatient (CLI) | payer MEDICAID, SELFPAY ==
--- NOTE | 2025-01-07 06:45 | DI.US_ITS ---
Exam(s) US PELVIS TRANSVAGINAL EXAM: US PELVIS TRANSVAGINAL CLINICAL HISTORY: heavy bleeding,menorrhagia,n92.0. TECHNIQUE: Transabdominal and transvaginal pelvic ultrasound was performed using standard protocol. COMPARISON: US US OB CAM WEIGHT from 10/22/2023 FINDINGS: UTERUS: Position: Retroflexed uterus position. Size: 8.5 long by 4.9 AP by 5.5 transverse cm Endometrium: 1.3 cm. Normal for patient's menstrual status. Myometrium: Unremarkable. Cervix: Unremarkable. OVARIES: The left ovary was not visualized transabdominally or transvaginally. No left adnexal clover s are seen sonographically. Right: 3.1 x 3.0 x 1.7 cm Cyst or mass: No suspicious cystic or solid masses. Left: cm Cyst or mass: No suspicious cystic or solid masses. DOPPLER: Color: Symmetric and uniform flow to the right ovary. CUL-DE-SAC: Free fluid: None. Other: None. IMPRESSION: 1. Normal-appearing uterus with endometrial stripe within normal limits. 2. Unremarkable right ovary. 3. The left ovary was not visualized on this examination. No left adnexal mass is seen sonographical ly. DATA REPOSITORY:
== END 2025-01-07 02:03 ==
LOC: DI 01:43
PROVIDERS: PCP Nurse Practitioner Family; Visit Provider Nurse Practitioner Women's Health
DX: N92.0 Excessive and frequent menstruation with regular cycle (principal)
CPT/HCPCS: 76830; 76856

== ENCOUNTER 2025-01-09 09:54 | Emergency (ER) | payer MEDICAID, SELFPAY ==
[2025-01-09 10:04] VITALS: BP 135/90; PULSE 90; RESP 14; TEMP 36.8; O2SAT 97
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
[2025-01-09] MEDS: Ibuprofen 600 MG TAB PO (11:09)
[2025-01-09 11:15] LABS: HCT 44.8 % (36.0-46.0); HGB 14.2 g/dL (11.2-15.7); MCH 27.6 pg (27.0-33.0); MCHC 31.7 % (32.0-36.0); MCV 87 fL (80-95); MPV 9.9 fL (8.0-11.0); Platelet Count 384 10^3/uL (130-400); RBC 5.14 10^6/uL (3.93-5.22); RDW 14.6 % (11.7-14.6); RDW-SD 46.7 fL; WBC 8.67 10^3/uL (4.4-10.8)
[2025-01-09 11:28] LABS: Anion Gap 10.4 mmol/L (3-11); BUN 8 mg/dL (7-18); CO2 27.6 mmol/L (21.0-32.0); CREATININE 0.7 mg/dL (0.55-1.02); Calcium 9.1 mg/dL (8.5-10.1); Chloride 101 mmol/L (98-107); Estimated GFR 120.74 (mL/min/1.73m2); Glucose 100 mg/dL (74-106); Sodium 139 mmol/L (136-145)
== END 2025-01-09 12:19 | disposition home or self-care (01) ==
PROVIDERS: Emergency Provider Emergency Medicine; PCP Nurse Practitioner Family
DX: N92.0 Excessive and frequent menstruation with regular cycle (principal); E28.2 Polycystic ovarian syndrome; F41.9 Anxiety disorder, unspecified
CPT/HCPCS: 80048; 81025; 85027; 99283

== ENCOUNTER 2025-03-11 15:01 | Outpatient (REF) | payer SELFPAY ==
--- NOTE | 2025-03-11 13:25 | ENDOMET_PTH ---
PATIENT: Gina Pérez LOC: TRAM U#:[id number] AGE/SX: 29/F ROOM: RE03/11/[address]: Minerva Ornelas MD : 1995 BED: DIS: 03/11/2025 SPEC #: [id number] RECD: 03/11/25 17:42 STATUS: PETTY REQ #: [id number] GARY: 03/11/25 13:[address]: Minerva Ornelas DEPT: Surgical Specimen RECD BY: Rebecca Link ENTERED: 03/11/25 17:43 SP TYPE: Endomet OTHR DR: Prashanth Horvath DNP Tissues: 1 - ENDOMETRIUM BX/NANCY Procedures: GROSS AND MICRO LEVEL 4 Comments: [id number]
== END 2025-03-11 15:02 | disposition home or self-care (01) ==
LOC: LBN 15:01
PROVIDERS: PCP Nurse Practitioner Family; Visit Provider Obstetrics & Gynecology
DX: N85.01 Benign endometrial hyperplasia (principal)
CPT/HCPCS: 88305